=== PATIENT | female | born 1955 | race Caucasian/White ===

== ENCOUNTER 2017-04-23 15:09 | Outpatient (CLI) | payer BC ==
--- NOTE | 2017-04-25 16:17 | Mammography Report ---
DIGITAL SCREENING MAMMOGRAM: 04/23/2017 CLINICAL INDICATION: A 61-year-old for screening. COMPARISON: 12/2015, 10/2014, 09/2013, 06/2011, 06/2010 TECHNIQUE: Routine CC and MLO projections were obtained of the breasts as well as bilateral laterall y exaggerated craniocaudal views. FINDINGS: The breasts demonstrate heterogeneously dense fibroglandular parenchyma bilaterally. In t he left upper central breast, there is a possible obscured nodule. Further evaluation with spot comp ression views and possible ultrasound is recommended. Coarse and punctate, typically benign calcific ations are present. No mammographically suspicious findings are appreciated in the right breast. IMPRESSION: INCOMPLETE EXAMINATION. RECOMMENDATION: Additional evaluation of the left breast as above. BIRADS CATEGORY 0 - INCOMPLETE. STANDARD QUALIFYING STATEMENTS 1. This examination was reviewed with the aid of Computer-Aided Detection (CAD). 2. A negative or benign imaging report should not delay biopsy if clinically suspicious findings are present. Consider surgical consultation if warranted. More than 5% of cancers are not identified by i maging. 3. Dense breasts may obscure an underlying neoplasm. JOB #: [id number] EXT JOB #:[id number]
== END 2017-04-23 15:10 | disposition home or self-care (01) ==
LOC: DI.N 15:09
PROVIDERS: ATTEND Family Medicine
DX: Z12.31 Encounter for screening mammogram for malignant neoplasm of breast (principal); R92.8 Other abnormal and inconclusive findings on diagnostic imaging of breast
CPT/HCPCS: 77067

== ENCOUNTER 2017-05-16 13:38 | Outpatient (CLI) | payer BC ==
--- NOTE | 2017-05-16 16:23 | Mammography Report ---
DIAGNOSTIC LEFT MAMMOGRAM: 05/16/2017 CLINICAL INDICATION: Possible nodule on screening. TECHNIQUE: Left true lateral and spot compression views. COMPARISON: 04/23/2017, 12/28/2015, 11/04/2014, 09/23/2013, 09/09/2013, 07/05/2011, 07/06/2010 FINDINGS: The left breast again demonstrates heterogeneously dense fibroglandular parenchyma. The d ensity in question in the left upper central breast dissipates on additional compression. No underly ing mass lesion or architectural distortion is seen. Punctate, typically benign calcifications are p resent. IMPRESSION: BENIGN FINDINGS. RECOMMENDATION: Routine annual screening unless otherwise clinically indicated. BIRADS CATEGORY 2 - BENIGN FINDINGS. STANDARD QUALIFYING STATEMENTS 1. This examination was reviewed with the aid of Computer-Aided Detection (CAD). 2. A negative or benign imaging report should not delay biopsy if clinically suspicious findings are present. Consider surgical consultation if warranted. More than 5% of cancers are not identified by i maging. 3. Dense breasts may obscure an underlying neoplasm. JOB #: [id number] EXT JOB #:[id number]
== END 2017-05-16 13:39 | disposition home or self-care (01) ==
LOC: DI 13:38
PROVIDERS: ATTEND Family Medicine
DX: R92.8 Other abnormal and inconclusive findings on diagnostic imaging of breast (principal)

== ENCOUNTER 2017-05-31 13:26 | Emergency (ER) | payer BC ==
[2017-05-31 13:51] VITALS: BP 177/106
== END 2017-05-31 14:58 | disposition left against medical advice (07) ==
LOC: ED 13:26
DX: Z53.21 Procedure and treatment not carried out due to patient leaving prior to being seen by health care provider (principal)
CPT/HCPCS: 80053; 83690; 84484; 85025

== ENCOUNTER 2018-12-17 13:20 | Outpatient (CLI) | payer BC ==
--- NOTE | 2018-12-17 14:52 | Mammography Report ---
Reason: SCREENING MAMMO Procedure Date: 12/17/2018 Accession Number: [id number] / [id number] Procedure: MGN - Screening Mammo Dig Bilat CPT Code: FULL RESULT: EXAM: Screening Mammo Dig Bilat DATE: 12/17/2018 1:43 PM CLINICAL HISTORY: Screening TECHNIQUE: (B) - Bilateral CC and MLO views were obtained. COMPARISON: 04/23/2017, 12/28/2015 PARENCHYMAL PATTERN: (A) - The breasts demonstrate scattered fibroglandular densities bilaterally. FINDINGS: There are no suspicious masses, calcifications, or areas of distortion. IMPRESSION: Negative examination. BI-RADS category 1. RECOMMENDATION: (ANNUAL) - Recommend routine annual screening mammography. BI-RADS CATEGORY: (1) - Negative. STANDARD QUALIFYING STATEMENTS: 1. This examination was not reviewed with the aid of Computer-Aided Detection (CAD). 2. A negative or benign imaging report should not preclude biopsy if clinically suspicious findings are present. 3. Dense breasts may obscure an underlying neoplasm. 4. This examination was reviewed without the aid of 3D breast imaging (tomosynthesis).
== END 2018-12-17 13:21 | disposition home or self-care (01) ==
LOC: DI.N 13:20
DX: Z12.31 Encounter for screening mammogram for malignant neoplasm of breast (principal)
CPT/HCPCS: 77067

== ENCOUNTER 2023-10-05 16:02 | Emergency (ER) | payer MEDICARE, OTHER ==
[2023-10-05 16:26] LABS: BASOPHILS # (AUTO) 0.1 10^3/uL (0.0-0.1); BASOPHILS % (AUTO) 0.6 %; EOSINOPHILS # (AUTO) 0.2 10^3/uL (0.0-0.7); EOSINOPHILS % (AUTO) 2.9 %; HCT - HEMATOCRIT 45.2 % (37.0-47.0); HGB - HEMOGLOBIN 14.5 g/dL (12.0-16.0); LYMPHOCYTES # (AUTO) 2.3 10^3/uL (1.5-3.5); LYMPHOCYTES % (AUTO) 28.8 %; MEAN CORPUSCULAR HEMOGLOBIN 29.5 pg (27.0-31.0); MEAN CORPUSCULAR HGB CONC 32.1 g/dL (32.0-36.0); MEAN CORPUSCULAR VOLUME 92.1 fL (81.0-99.0); MEAN PLATELET VOLUME 10.8 fL (7.9-10.8); MONOCYTES # (AUTO) 0.6 10^3/uL (0.0-1.0); MONOCYTES % (AUTO) 7.5 %; NEUTROPHILS # (AUTO) 4.8 10^3/uL (1.5-6.6); NEUTROPHILS % (AUTO) 60.1 %; PLT - PLATELET COUNT 237 10^3/uL (130-450); RED BLOOD COUNT 4.91 10^6/uL (4.20-5.40); RED CELL DISTRIBUTION WIDTH 14.1 % (12.0-15.0)
--- NOTE | 2023-10-05 16:39 | ED Physician Documentation ---
History of Present Illness - Stated complaint Stated Complaint: CHEST PX - Chief complaint Chief Complaint: Cardiac - History obtained from History obtained from: Patient - History of Present Illness Timing: Today Pain level max: 0 Pain level now: 0 - Additonal information Additional information: Patient is a 68-year-old female who presents to the emergency department stating that she has a history of chronic longstanding atrial fibrillation. She states her heart rate became elevated today and she felt lightheaded like she was going to pass out. She states she did not have any chest pain. No shortness of breath. No nausea or vomiting. No difficulty breathing. She is on Eliquis. She is seen by cardiology at [facility]. Review of Systems Constitutional: denies: Fever, Chills GI: denies: Nausea, Vomiting, Diarrhea Skin: denies: Rash Musculoskeletal: denies: Neck pain, Back pain PD PAST MEDICAL HISTORY - Past Medical History Cardiovascular: Hypertension, Atrial fibrillation - Past Surgical History Past Surgical History: Yes HEENT: Tonsil/Adenoidectomy - Present Medications Home Medications: Ambulatory Orders Medication Instructions Recorded Confirmed Losartan [Cozaar] 100 mg PO DAILY 04/30/16 05/31/17 Omeprazole [PriLOSEC] 10 mg PO DAILY 05/31/17 05/31/17 - Allergies Allergies/Adverse Reactions: Allergies Allergy/AdvReac Type Severity Reaction Status Date / Time Penicillins Allergy Unknown Verified 10/05/23 16:20 - Social History Does the pt smoke?: No Smoking Status: Never smoker Does the pt drink ETOH?: No Does the pt have substance abuse?: No - Immunizations Immunizations are current?: Yes PD ED PE NORMAL - Vitals Vital signs reviewed: Yes - General General: Alert and oriented X 3, No acute distress - HEENT HEENT: Moist mucous membranes - Neck Neck: Supple, no meningeal sign - Cardiac Cardiac: Other (Irregularly irregular) - Respiratory Respiratory: No respiratory distress, Clear bilaterally - Abdomen Abdomen: Soft, Non tender, Non distended - Derm Derm: Warm and dry - Extremities Extremities: No edema - Neuro Neuro: Alert and oriented X 3 - Psych Psych: Normal mood, Normal affect Results - Vitals Vitals: Vital Signs - 24 hr 10/05/23 10/05/23 10/05/23 16:13 16:22 17:59 Temperature 36.6 C 36.2 C L Heart Rate 119 H 66 Respiratory 22 20 Rate Blood Pressure 153/99 H 120/80 Blood Pressure 153/99 H [Right] O2 Saturation 97 100 Oxygen O2 Source Room air - EKG (time done) 1619 EKG releavant findings:: EKG personally interpreted by author of this note. Relevant findings are: Rate: Rate (enter#) (115) Rhythm: Atrial fibrillation [place]: Normal QRS: Normal, LVH - Labs Labs: Laboratory Tests 10/05/23 10/05/23 16:19 16:48 WBC 8.0 RBC 4.91 Hgb 14.5 Hct 45.2 MCV 92.1 MCH 29.5 MCHC 32.1 RDW 14.1 Plt Count 237 MPV 10.8 Neut # (Auto) 4.8 Lymph # (Auto) 2.3 [place] # (Auto) 0.6 Eos # (Auto) 0.2 Baso # (Auto) 0.1 Absolute Nucleated RBC 0.00 Nucleated RBC % 0.0 Sodium 140 Potassium 4.1 Chloride 107 Carbon Dioxide 25 Anion Gap 8.0 BUN 16 Creatinine 0.8 Estimated GFR (MDRD) 71 L Glucose 112 H Calcium 10.0 Total Bilirubin 0.5 AST 20 ALT 18 Alkaline Phosphatase 101 Troponin I High Sens 3.2 Total Protein 6.6 Albumin 4.3 Globulin 2.3 Albumin/Globulin Ratio 1.9 Lipase 27 - Rads (name of study) cxr Relevant Findings:: Final report received, See rad report PD Medical Decision Making - ED course Complexity details: reviewed results, re-evaluated patient, considered differential, d/w patient ED course: 68-year-old female with atrial fibrillation with rapid ventricular response. She spontaneously converted while in the emergency department. Symptoms resolved. No significant lab abnormalities. No chest pain. Negative troponin. Likely that the patient symptoms are related to her atrial fibrillation. 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 She will return if she worsens. Patient counseled regarding signs and symptoms for which I believe and urgent re- evaluation would be necessary. Patient with good understanding of and agreement to plan and is comfortable going home at this time This document was made in part using voice recognition software. While efforts are made to proofread this document, sound alike and grammatical errors may occur. Departure - Departure Disposition: Home, Self Care Clinical Impression: Atrial fib/flutter, transient Condition: Good Instructions: ED Afib Follow-Up: POOJA NASH MD [Primary Care Provider] - Comments: You have converted back into a normal sinus rhythm. It is likely that the atrial fibrillation was making you feel lightheaded. Please continue your current medications and follow-up with your doctor for further care. Return if you worsen Forms: PCP List Discharge Date/Time: 10/05/23 18:00
--- NOTE | 2023-10-05 16:43 | XRAY Report ---
PROCEDURE: Chest 1V INDICATIONS: Chest pain TECHNIQUE: One view of the chest was acquired. COMPARISON: None. FINDINGS: Surgical changes and devices: None. Lungs and pleura: No pleural effusions or pneumothorax. Lungs are clear. Mediastinum: Mediastinal contours appear normal. Heart size is normal. Bones and chest wall: No suspicious bony lesions. Age-appropriate degenerative changes are seen. Overlying soft tissues appear unremarkable. IMPRESSION: Portable chest within normal limits for age. Reviewed by: Rafiq Benjamin MD on 10/05/2023 3:42 PM AKDT Approved by: Rafiq Benjamin MD on 10/05/2023 3:42 PM YOLANDA Station ID: [id number]
[2023-10-05] MEDS: SODIUM CHLORIDE 0.9% 1,000 ML IV STA (16:55)
[2023-10-05 17:15] LABS: ALBUMIN 4.3 g/dL (3.2-5.5); ALBUMIN/GLOBULIN RATIO 1.9 (1.0-2.2); BILIRUBIN,TOTAL 0.5 mg/dL (0.2-1.0); CREATININE 0.8 mg/dL (0.6-1.3); POTASSIUM 4.1 mmol/L (3.5-4.5); TOTAL PROTEIN 6.6 g/dL (6.4-8.9)
[2023-10-05 17:16] LABS: TROPONIN I HIGH SENSITIVITY 3.2 ng/L (2.3-14.8)
[2023-10-05 18:06] VITALS: BP 120/80; O2SAT 100
== END 2023-10-05 18:00 | disposition home or self-care (01) ==
LOC: ED 16:02
DX: I48.91 Unspecified atrial fibrillation (principal); I48.92 Unspecified atrial flutter; Z79.01 Long term (current) use of anticoagulants; I10 Essential (primary) hypertension
CPT/HCPCS: 36415; 80053; 83690; 84484; 85025; 93005; 96360; 99284